=== PATIENT | female | born 1940 | race Caucasian/White ===

== ENCOUNTER 2020-09-26 15:52 | Inpatient (IN) | payer OTHER, SELFPAY ==
[~2020-09-26] VITALS: Ht 144.8 cm; Wt 46.8 kg
[2020-09-26 15:59] VITALS: BP_SYST 182
[2020-09-26] MEDS ORDERED: ALBUTEROL SULFATE 0.083% 2.5 MG/3 ML VIAL.NEB INH ONE (16:15)
[2020-09-26] MEDS ORDERED: methylPREDNISolone SOD SUCC/PF 62.5 MG/ML VIAL IVP ONE (16:15)
[2020-09-26] MEDS ORDERED: IPRATROPIUM BROM 0.5 MG/2.5 ML VIAL.NEB (ATROVENT) INH ONE (16:15)
[2020-09-26 16:56] LABS: BASOPHILS % (AUTO) 0.7 % (0.0-2.0); EOSINOPHILS % (AUTO) 0.6 % (0.0-4.0); HEMATOCRIT 46.3 % (36-48); HEMOGLOBIN 15.6 g/dL (12.0-16.0); LYMPHOCYTES # (AUTO) 0.9 K/uL (1.0-5.5); LYMPHOCYTES % (AUTO) 19.1 % (20.5-51.5); MEAN CORPUSCULAR HEMOGLOBIN 32 pg (27-31); MEAN CORPUSCULAR HGB CONC 34 % (32-36); MEAN CORPUSCULAR VOLUME 94 fL (79.0-98.0); MONOCYTES # (AUTO) 0.4 K/uL (0.0-1.0); MONOCYTES % (AUTO) 9.6 % (1.7-9.3); NEUTROPHILS # (AUTO) 3.2 K/uL (1.8-7.7); PLATELET COUNT (AUTO) 166 K/uL (130-430); RED BLOOD CELL COUNT(AUTO) 4.92 MIL/uL (4.2-6.2); RED CELL DISTRIBUTION WIDTH 13.9 % (9.0-15.0); WHITE BLOOD COUNT (AUTO) 4.6 K/uL (4.8-10.8)
[2020-09-26 17:55] LABS: ANION GAP 11 (5-15); CALCIUM 8.5 mg/dL (8.4-11.0); CHLORIDE 109 mmol/L (98-107); CREATININE 0.72 mg/dL (0.55-1.30); GLUCOSE 104 mg/dL (70-99); POTASSIUM 4.2 mmol/L (3.5-5.1); SODIUM SERUM 146 mmol/L (136-145); UREA NITROGEN, BLOOD 26 mg/dL (8-21)
[2020-09-26 17:59] LABS: ALANINE AMINOTRANSFERASE 41 U/L (12-78); ALBUMIN 3.4 g/dL (3.4-4.8); ASPARTATE AMINOTRANSFERASE 49 U/L (10-37); TOTAL BILIRUBIN 0.9 mg/dL (0.0-1.0)
[2020-09-26] MEDS ORDERED: ALBMDI INH (18:05)
[2020-09-26] MEDS ORDERED: GLUC-119 PO (18:05)
[2020-09-26] MEDS ORDERED: CALC-263 PO (18:05)
[2020-09-26] MEDS ORDERED: MOME13HF2 INH (18:05)
[2020-09-26] MEDS ORDERED: ASA81 PO (18:05)
[2020-09-26 18:55] VITALS: BP_SYST 180
[2020-09-26 19:55] VITALS: BP_SYST 158
[2020-09-26] MEDS ORDERED: ALBUTEROL MDI INHALATION 8 GM INH INH PRN (20:15)
[2020-09-26] MEDS ORDERED: NALOXONE HCL 0.4 MG/ML AMP (NARCAN) IVP PRN (20:15)
[2020-09-26] MEDS ORDERED: MORPHINE 4 MG INJ. 4 MG/ML VIAL IVP PRN (20:15)
[2020-09-26] MEDS ORDERED: HYDROcodone/ACETAMIN 5-325 MG TAB (NORCO/ VICODIN) PO PRN (20:15)
[2020-09-26 20:19] VITALS: BP_SYST 180
[2020-09-26] MEDS ORDERED: hydrALAZINE HCL 25 MG TABLET PO ONE (21:00)
[2020-09-26] MEDS ORDERED: cefTRIAXone 1 GM IVPB PREMIX 50 ML IV ONE (21:17)
[2020-09-26] MEDS ORDERED: AZITHROMYCIN 500 MG/VIAL (ZITHROMAX) IV ONE (21:18)
[2020-09-26] MEDS: cefTRIAXone 1 GM IVPB PREMIX 50 ML IV SCH (22:02)
[2020-09-26] MEDS: AZITHROMYCIN 500 MG in NS 250 ML IV SCH (22:58)
[2020-09-27] VITALS: BP_SYST 156
[2020-09-27] MEDS: ACETAMINOPHEN 325 MG TABLET PO PRN (00:03)
[2020-09-27] MEDS: ALBUTEROL SULFATE 0.083% 2.5 MG/3 ML VIAL.NEB INH PRN (00:55)
[2020-09-27 06:04] LABS: BASOPHILS % (AUTO) 0.3 % (0.0-2.0); HEMATOCRIT 45.2 % (36-48); HEMOGLOBIN 15.2 g/dL (12.0-16.0); LYMPHOCYTES # (AUTO) 0.6 K/uL (1.0-5.5); LYMPHOCYTES % (AUTO) 14.3 % (20.5-51.5); MEAN CORPUSCULAR HEMOGLOBIN 31 pg (27-31); MEAN CORPUSCULAR HGB CONC 34 % (32-36); MEAN CORPUSCULAR VOLUME 94 fL (79.0-98.0); MONOCYTES # (AUTO) 0.1 K/uL (0.0-1.0); MONOCYTES % (AUTO) 1.3 % (1.7-9.3); NEUTROPHILS # (AUTO) 3.8 K/uL (1.8-7.7); NEUTROPHILS % (AUTO) 84.1 % (40.0-70.0); PLATELET COUNT (AUTO) 165 K/uL (130-430); RED BLOOD CELL COUNT(AUTO) 4.82 MIL/uL (4.2-6.2); RED CELL DISTRIBUTION WIDTH 13.5 % (9.0-15.0); WHITE BLOOD COUNT (AUTO) 4.5 K/uL (4.8-10.8)
[2020-09-27 06:16] LABS: ALANINE AMINOTRANSFERASE 31 U/L (12-78); ALBUMIN 3.1 g/dL (3.4-4.8); ANION GAP 15 (5-15); ASPARTATE AMINOTRANSFERASE 36 U/L (10-37); CALCIUM 8.7 mg/dL (8.4-11.0); CHLORIDE 108 mmol/L (98-107); CREATININE 0.54 mg/dL (0.55-1.30); GLUCOSE 145 mg/dL (70-99); POTASSIUM 3.8 mmol/L (3.5-5.1); SODIUM SERUM 143 mmol/L (136-145); TOTAL BILIRUBIN 0.8 mg/dL (0.0-1.0); UREA NITROGEN, BLOOD 22 mg/dL (8-21)
[2020-09-27] MEDS: BUDESONIDE 0.5 MG/2 ML AMPUL.NEB INH SCH ×2 (07:07→20:12)
[2020-09-27 07:53] VITALS: BP_SYST 163
[2020-09-27] MEDS ORDERED: NAPR-688 PO (07:56)
[2020-09-27] MEDS ORDERED: LISI10TA29 PO (07:56)
[2020-09-27] MEDS ORDERED: COR3.125 PO (07:56)
[2020-09-27] MEDS: ASPIRIN 81 MG TAB.CHEW PO SCH (08:20)
[2020-09-27] MEDS ORDERED: CARVEDILOL 3.125 MG TABLET (COREG) PO ONE (09:45)
[2020-09-27] MEDS ORDERED: LISINOPRIL 10 MG TABLET (PRINIVIL) PO ONE (09:45)
[2020-09-27 12:26] VITALS: BP_SYST 144
[2020-09-27 13:35] VITALS: BP_SYST 145
[2020-09-27 16:26] VITALS: BP_SYST 137
[2020-09-27] MEDS ORDERED: ONDANSETRON HCL 4 MG/2 ML VIAL IVP ONE (18:00)
[2020-09-27 20:00] VITALS: BP_SYST 141
[2020-09-27] MEDS: cefTRIAXone 1 GM IVPB PREMIX 50 ML IV SCH (20:45)
[2020-09-27] MEDS: AZITHROMYCIN 500 MG in NS 250 ML IV SCH (20:45)
[2020-09-27] MEDS: CARVEDILOL 3.125 MG TABLET (COREG) PO SCH (20:45)
[2020-09-27 23:06] LABS: APPEARANCE,SPUN,BODY FLUID CLEAR (CLEAR); BF APPEARANCE UNSPUN CLOUDY (CLEAR); BODY FLUID COLOR YELLOW (LT YELLOW); BODY FLUID SOURCE/ TYPE PLEURAL; BODY FLUID TOTAL VOLUME 830 mL; RBC, BODY FLUID 18678 /uL; SOURCE/TYPE ,BODY FLUID PLEURAL; WBC, BODY FLUID 3556 /uL
[2020-09-27 23:07] LABS: EOSINOPHIL, BODY FLUID 0 %; LYMPHOCYTES, BODY FLUID 92 %; MONOCYTES,BODY FLUID 7 %; NEUTROPHIL, BODY FLUID 1 %
[2020-09-28] VITALS: BP_SYST 138
[2020-09-28] MEDS: BUDESONIDE 0.5 MG/2 ML AMPUL.NEB INH SCH ×2 (07:20→20:11)
[2020-09-28 08:00] VITALS: BP_SYST 145
[2020-09-28] MEDS: ASPIRIN 81 MG TAB.CHEW PO SCH (09:16)
[2020-09-28] MEDS: CARVEDILOL 3.125 MG TABLET (COREG) PO SCH ×2 (09:17→20:41)
[2020-09-28] MEDS: LISINOPRIL 10 MG TABLET (PRINIVIL) PO SCH (09:17)
[2020-09-28] MEDS: ACETAMINOPHEN 325 MG TABLET PO PRN (09:27)
[2020-09-28 11:06] LABS: BODY FLUID GLUCOSE 140 mg/dL; BODY FLUID TOTAL PROTEIN 3.3 g/dL
[2020-09-28] MEDS ORDERED: guaiFENesin/DEXTROMETHORPHAN 10 ML UDC PO PRN (11:30)
[2020-09-28 12:20] VITALS: BP_SYST 125
[2020-09-28 16:24] VITALS: BP_SYST 129
[2020-09-28 20:00] VITALS: BP_SYST 150
[2020-09-28] MEDS: ACETYLCYSTEINE 20% 4 ML VIAL (RT) INH SCH (20:11)
[2020-09-28] MEDS: cefTRIAXone 1 GM IVPB PREMIX 50 ML IV SCH (20:42)
[2020-09-28] MEDS: AZITHROMYCIN 500 MG in NS 250 ML IV SCH (20:43)
[2020-09-28] MEDS: methylPREDNISolone SOD SUCC/PF 62.5 MG/ML VIAL IVP SCH (21:50)
[2020-09-29 00:31] VITALS: BP_SYST 134
[2020-09-29] MEDS: ACETAMINOPHEN 325 MG TABLET PO PRN ×2 (02:49→21:05)
[2020-09-29] MEDS ORDERED: ALPRAZolam 0.25 MG TABLET PO ONE (03:15)
[2020-09-29] MEDS: methylPREDNISolone SOD SUCC/PF 62.5 MG/ML VIAL IVP SCH ×3 (05:32→21:06)
[2020-09-29 06:35] LABS: BASOPHILS % (AUTO) 0.3 % (0.0-2.0); EOSINOPHILS % (AUTO) 0.1 % (0.0-4.0); HEMATOCRIT 44.4 % (36-48); LYMPHOCYTES % (AUTO) 12.1 % (20.5-51.5); MEAN CORPUSCULAR HEMOGLOBIN 32 pg (27-31); MEAN CORPUSCULAR HGB CONC 34 % (32-36); MEAN CORPUSCULAR VOLUME 94 fL (79.0-98.0); MONOCYTES # (AUTO) 0.4 K/uL (0.0-1.0); MONOCYTES % (AUTO) 4.8 % (1.7-9.3); NEUTROPHILS # (AUTO) 6.7 K/uL (1.8-7.7); NEUTROPHILS % (AUTO) 82.7 % (40.0-70.0); PLATELET COUNT (AUTO) 170 K/uL (130-430); RED BLOOD CELL COUNT(AUTO) 4.72 MIL/uL (4.2-6.2); WHITE BLOOD COUNT (AUTO) 8.1 K/uL (4.8-10.8)
[2020-09-29 06:52] LABS: ANION GAP 10 (5-15); CALCIUM 8.1 mg/dL (8.4-11.0); CHLORIDE 109 mmol/L (98-107); CREATININE 0.58 mg/dL (0.55-1.30); GLUCOSE 107 mg/dL (70-99); POTASSIUM 3.9 mmol/L (3.5-5.1); SODIUM SERUM 144 mmol/L (136-145); UREA NITROGEN, BLOOD 20 mg/dL (8-21)
[2020-09-29] MEDS: BUDESONIDE 0.5 MG/2 ML AMPUL.NEB INH SCH ×2 (07:31→19:35)
[2020-09-29] MEDS: ALBUTEROL SULFATE 0.083% 2.5 MG/3 ML VIAL.NEB INH PRN ×3 (07:31→19:35)
[2020-09-29] MEDS: ACETYLCYSTEINE 20% 4 ML VIAL (RT) INH SCH ×4 (07:31→19:35)
[2020-09-29 08:00] VITALS: BP_SYST 135
[2020-09-29 08:00] LABS: C-REACTIVE PROTEIN QUANT 0.5 mg/dL (0-0.5)
[2020-09-29 08:20] LABS: ERYTHROCYTE SEDIMENTATION RATE 5 MM/HR (0-20)
[2020-09-29] MEDS: ASPIRIN 81 MG TAB.CHEW PO SCH (08:26)
[2020-09-29] MEDS: CARVEDILOL 3.125 MG TABLET (COREG) PO SCH ×2 (08:26→21:05)
[2020-09-29] MEDS: LISINOPRIL 10 MG TABLET (PRINIVIL) PO SCH (08:27)
[2020-09-29 08:41] VITALS: BP_SYST 135
[2020-09-29] MEDS ORDERED: DIATR MEGLU/DIATRIZ SOD 30 ML SOLUTION PO ONE (08:47)
[2020-09-29 12:18] VITALS: BP_SYST 144
[2020-09-29 17:04] VITALS: BP_SYST 151
[2020-09-29] MEDS: cefTRIAXone 1 GM IVPB PREMIX 50 ML IV SCH (19:53)
[2020-09-29 20:00] VITALS: BP_SYST 136
[2020-09-29] MEDS: AZITHROMYCIN 500 MG in NS 250 ML IV SCH (21:05)
[2020-09-30 01:15] VITALS: BP_SYST 127
[2020-09-30] MEDS: ACETAMINOPHEN 325 MG TABLET PO PRN (03:15)
[2020-09-30] MEDS: methylPREDNISolone SOD SUCC/PF 62.5 MG/ML VIAL IVP SCH (05:44)
[2020-09-30] MEDS: ACETYLCYSTEINE 20% 4 ML VIAL (RT) INH SCH (07:00)
[2020-09-30] MEDS: BUDESONIDE 0.5 MG/2 ML AMPUL.NEB INH SCH (07:00)
[2020-09-30] MEDS: ASPIRIN 81 MG TAB.CHEW PO SCH (08:25)
[2020-09-30 08:26] VITALS: BP_SYST 121
[2020-09-30] MEDS: CARVEDILOL 3.125 MG TABLET (COREG) PO SCH (08:26)
[2020-09-30] MEDS: LISINOPRIL 10 MG TABLET (PRINIVIL) PO SCH (08:26)
[2020-09-30] MEDS ORDERED: predniSONE 20 MG TABLET PO ONE (09:00)
[2020-09-30 12:15] VITALS: BP_SYST 147
[2020-09-30] MEDS ORDERED: PRED20TA PO (12:40)
[2020-09-30] MEDS ORDERED: AMOX-426 PO (12:44)
[2020-09-30] MEDS ORDERED: ALBU2.5V7 INH (12:44)
[2020-09-30 12:50] VITALS: BP_SYST 147
[2020-09-30 16:45] VITALS: BP_SYST 137
[2020-10-01] MEDS ORDERED: predniSONE 20 MG TABLET PO SCH (08:00)
== END 2020-09-30 17:55 | disposition home health service (06) | DRG 193 ==
LOC: SED 15:52 → OBSVTOIN 18:17 → INTOOBSV 18:17 → STU 18:17 → OBSVTOIN 09-27 09:39 → STU 09-28 20:12 → SMU 09-29 16:10
PROVIDERS: ADMIT Internal Medicine Hospice and Palliative Medicine; ATTEND Internal Medicine Hospice and Palliative Medicine
PROC: 0W993ZZ Drainage of Right Pleural Cavity, Percutaneous Approach (ICD-10-PCS; principal; 2020-09-27)
DX: J18.9 Pneumonia, unspecified organism (principal); J96.21 Acute and chronic respiratory failure with hypoxia; J44.1 Chronic obstructive pulmonary disease with (acute) exacerbation; J45.901 Unspecified asthma with (acute) exacerbation; J91.8 Pleural effusion in other conditions classified elsewhere; C85.90 Non-Hodgkin lymphoma, unspecified, unspecified site; E87.0 Hyperosmolality and hypernatremia; J44.0 Chronic obstructive pulmonary disease with (acute) lower respiratory infection; D86.9 Sarcoidosis, unspecified; F17.200 Nicotine dependence, unspecified, uncomplicated; I10 Essential (primary) hypertension; Z20.822 Contact with and (suspected) exposure to COVID-19; F41.9 Anxiety disorder, unspecified; Z79.899 Other long term (current) drug therapy; Z90.710 Acquired absence of both cervix and uterus; Z79.82 Long term (current) use of aspirin
CPT/HCPCS: 32555; 36415; 71045; 71250-TC; 71260-TC; 76376; 76604; 80048; 80053; 82947; 83605; 83615; 83880; 84157; 84484; 85025; 85651-TC; 86140; 86480; 86710; 87040-TC; 87070-TC; 88108; 88305; 89051-TC; 89060-TC; 93005; 94640; 94760; 96374; 99285; C1729; G0378; J0456; J0696; J2405; J2930; J7050; J7512; J7608; J7613; J7626; Q9964; Q9967; U0003

== ENCOUNTER 2020-10-09 23:17 | Emergency (ER) | payer OTHER, SELFPAY ==
[~2020-10-09] VITALS: Ht 147.3 cm; Wt 44.9 kg
[~2020-10-09 23:17] MED LIST: ALBMDI INH; ALBU2.5V7 INH; AMOX-426 PO; ASA81 PO; CALC-263 PO; COR3.125 PO; GLUC-119 PO; LISI10TA29 PO; MOME13HF2 INH; NAPR-688 PO; PRED20TA PO
--- NOTE | 2020-10-09 23:20 | NUR ---
Placed in room 2 . Placed on panel monitor, blood pressure machine and pulse oximeter. To gown for exam. Side rails up.
[2020-10-09 23:25] VITALS: BP_SYST 160
--- NOTE | 2020-10-09 23:35 | NUR ---
PATIENT AAOX4 BIB [facility] FOR WORSENING SOB X 1 DAY WITH PRODUCTIVE COUGH. PATIENT WAS ADMITTED APPROXIMATELY FOR 10 DAYS FOR PLEURAL EFFUSION. 800 CC OF FLUID WAS REMOVED. HAS HISTORY OF HTN. CURRNELY STATING NO PAIN, DENIES ANY CHEST PAIN. CAP REFILL <3 SEC. VSS.
--- NOTE | 2020-10-09 23:50 | NUR ---
# 20 gauge angiocath placed to LEFT WRIST. Use of asceptic technique. Opsite placed over site. Blood return noted. Flushed with 10 cc of normal saline. No evidence of infiltration noted. Patient tolerated well.
[2020-10-10] MEDS ORDERED: ALBUTEROL SULFATE 0.083% 2.5 MG/3 ML VIAL.NEB INH ONE
[2020-10-10] MEDS ORDERED: methylPREDNISolone SOD SUCC/PF 62.5 MG/ML VIAL IVP ONE
[2020-10-10] MEDS ORDERED: IPRATROPIUM BROM 0.5 MG/2.5 ML VIAL.NEB (ATROVENT) INH ONE
--- NOTE | 2020-10-10 | NUR ---
DR. العراقي AT BEDSIDE FOR PATIENT EVALUATION.
--- NOTE | 2020-10-10 00:11 | NUR ---
PORTABLE XRAY DONE AT BEDSIDE.
--- NOTE | 2020-10-10 00:23 | NUR ---
RESPIRATORY THERAPY AT BEDSIDE GIVING BREATHING TREATMENT. PT TOLERATING WELL.
--- NOTE | 2020-10-10 01:13 | NUR ---
HEAD NURSE AT BEDSIDE FOR BLOOD SPECIMEN COLLECTION.
[2020-10-10 01:37] LABS: BASOPHILS # (AUTO) 0.1 K/uL (0.0-0.2); BASOPHILS % (AUTO) 0.7 % (0.0-2.0); HEMATOCRIT 47.7 % (36-48); HEMOGLOBIN 15.8 g/dL (12.0-16.0); LYMPHOCYTES # (AUTO) 0.9 K/uL (1.0-5.5); LYMPHOCYTES % (AUTO) 6.3 % (20.5-51.5); MEAN CORPUSCULAR HEMOGLOBIN 32 pg (27-31); MEAN CORPUSCULAR HGB CONC 33 % (32-36); MEAN CORPUSCULAR VOLUME 96 fL (79.0-98.0); MONOCYTES # (AUTO) 0.4 K/uL (0.0-1.0); MONOCYTES % (AUTO) 2.9 % (1.7-9.3); NEUTROPHILS # (AUTO) 12.2 K/uL (1.8-7.7); NEUTROPHILS % (AUTO) 90.1 % (40.0-70.0); PLATELET COUNT (AUTO) 236 K/uL (130-430); RED CELL DISTRIBUTION WIDTH 14.3 % (9.0-15.0); WHITE BLOOD COUNT (AUTO) 13.5 K/uL (4.8-10.8)
[2020-10-10 01:42] LABS: ANION GAP 13 (5-15); CALCIUM 8.7 mg/dL (8.4-11.0); CHLORIDE 105 mmol/L (98-107); CREATININE 0.73 mg/dL (0.55-1.30); GLUCOSE 125 mg/dL (70-99); POTASSIUM 4.3 mmol/L (3.5-5.1); SODIUM SERUM 143 mmol/L (136-145); UREA NITROGEN, BLOOD 29 mg/dL (8-21)
[2020-10-10 01:48] LABS: ALANINE AMINOTRANSFERASE 57 U/L (12-78); ALBUMIN 3.2 g/dL (3.4-4.8); ASPARTATE AMINOTRANSFERASE 41 U/L (10-37); TOTAL BILIRUBIN 1.2 mg/dL (0.0-1.0)
--- NOTE | 2020-10-10 02:17 | NUR ---
Patient resting quietly. No acute distress noted. Vital signs within normal range.
[2020-10-10] MEDS ORDERED: cefTRIAXone 1 GM in D5W 50 ML IV ONE (02:45)
[2020-10-10] MEDS ORDERED: cefTRIAXone 1 GM VIAL ONE (02:48)
[2020-10-10] MEDS ORDERED: GUAI5LIQ10 PO (02:57)
[2020-10-10] MEDS ORDERED: PRED20TA PO (02:57)
[2020-10-10] MEDS ORDERED: CEFU250T85 PO (02:57)
[2020-10-10 03:30] VITALS: BP_SYST 160
--- NOTE | 2020-10-10 03:41 | NUR ---
Patient given written and verbal discharge instructions and verbalizes understanding. dr. Cheyenne CHU MD discussed with patient the results and treatment provided. Patient in stable condition. ID arm band removed. IV catheter removed intact and dressing applied, no active bleeding. Rx of CEFTIN, DUAIFENESIN, PREDNISONE given. Patient educated on pain management and to follow up with PMD. Pain Scale 0/10. Opportunity for questions provided and answered. Medication side effect fact sheet provided.
== END 2020-10-10 03:30 | disposition home or self-care (01) ==
LOC: SED 23:17
DX: J44.1 Chronic obstructive pulmonary disease with (acute) exacerbation (principal); J90 Pleural effusion, not elsewhere classified; J98.59 Other diseases of mediastinum, not elsewhere classified; I10 Essential (primary) hypertension; Z79.899 Other long term (current) drug therapy
CPT/HCPCS: 36415; 71045; 80053; 85025; 94640; 96374; 96375; 99285; J0696; J2930; J7613